=== PATIENT | female | born 1935 | race Caucasian/White ===

== ENCOUNTER → 2021-06-05 | Outpatient (CLI) | payer OTHER ==
[~2021-06-05] MED LIST: AMLO5 PO; ASPI325 PO; ASPI81EC PO; CITA20 PO; CYAN1000 PO; CYAN1000I IM; ELIQUIS5 MG PO; EZET10 PO; FLUO10 PO; GABA300 PO; HEARTBURN RELI150 M1 PO; LEVSOD100 PO; LEVSOD88 PO; LIVALO2 MG PO; LOSA25 PO; LOSA50 PO; LOSARTAN POTAS100 MG PO; LOSHYD PO; METO50 PO; METO50ER PO; ONDA4ODT MM; PRAV20 PO; VITAMIN B12 SL
== END | disposition home or self-care (01) ==
LOC: LAB SHORT 17:00
DX: N30.00 Acute cystitis without hematuria (principal)
CPT/HCPCS: 87086

== ENCOUNTER 2022-02-05 08:19 | Emergency (ER) | payer OTHER ==
[~2022-02-05] VITALS: Ht 157.5 cm; Wt 63.5 kg
== END 2022-02-05 10:15 | disposition home or self-care (01) ==
LOC: ER 08:19
DX: S06.0X0A Concussion without loss of consciousness, initial encounter (principal); M54.2 Cervicalgia; I10 Essential (primary) hypertension; J45.909 Unspecified asthma, uncomplicated; E03.9 Hypothyroidism, unspecified; Z87.11 Personal history of peptic ulcer disease; Z79.899 Other long term (current) drug therapy; Z88.5 Allergy status to narcotic agent; Z88.0 Allergy status to penicillin; Z88.2 Allergy status to sulfonamides; Z88.8 Allergy status to other drugs, medicaments and biological substances; Z79.01 Long term (current) use of anticoagulants; W17.89XA Other fall from one level to another, initial encounter
CPT/HCPCS: 70450; 72125

== ENCOUNTER → 2025-03-17 | Outpatient (CLI) | payer OTHER ==
[2025-03-17 11:49] LABS: BASOPHILS ABSOLUTE AUTO 0.03 K/mm3 (0.00-0.23); BASOPHILS PERCENT AUTO 1 % (0-2); EOSINOPHILS ABSOLUTE AUTO 0.07 K/mm3 (0.00-0.68); EOSINOPHILS PERCENT AUTO 1 % (0-6); Hematocrit 35.5 % (33.0-51.0); Hemoglobin 11.8 g/dL (11.5-16.0); IMMATURE GRAN ABSOLUTE AUTO 0.03 K/mm3 (0.00-0.10); IMMATURE GRAN PERCENT AUTO 1 % (0-1); LYMPHOCYTES ABSOLUTE AUTO 1.92 K/mm3 (0.84-5.20); LYMPHOCYTES PERCENT AUTO 30 % (21-46); MONOCYTES ABSOLUTE AUTO 0.47 K/mm3 (0.16-1.47); MONOCYTES PERCENT AUTO 7 % (4-13); Mean Corpuscular HGB Conc 33.2 g/dL (31.5-36.5); Mean Corpuscular Volume 92 fL (80-100); NEUTROPHILS ABSOLUTE AUTO 3.96 K/mm3 (1.96-9.15); NEUTROPHILS PERCENT AUTO 61 % (41-73); NRBC ABSOLUTE 0.00 K/mm3 (0.00-0.02); NRBC Auto 0.0 /100 WBC (0.0-0.2); Platelet Count 186 K/mm3 (150-400); RDW Coefficient Variation 13.5 % (11.7-14.2); RDW Standard Deviation 45.5 fL (35.1-46.3)
[2025-03-17 12:10] LABS: Alanine Aminotransfer (ALT/SGP 11.0 U/L (12-78); Albumin, Blood 3.7 g/dL (3.4-5.0); Albumin/Globulin Ratio 1.0 (0.8-1.8); Anion Gap 14.0 mmol/L (3-11); Aspartate Aminotrans (AST/SGOT 21.0 U/L (12-37); Bilirubin, Total 0.5 mg/dL (0.1-1.0); Blood Urea Nitrogen 17.0 mg/dL (8-24); CO2, Blood 25.0 mmol/L (21-32); Calcium, Blood 9.1 mg/dL (8.5-10.1); Chloride, Blood 106.0 mmol/L (98-108); Creatinine, Blood 1.1 mg/dL (0.40-1.00); Globulin, Blood 3.8 g/dL (2.2-4.0); Glucose, Blood 94.0 mg/dL (70-99); Potassium, Blood 4.4 mmol/L (3.5-5.5); Sodium, Blood 141.0 mmol/L (136-145); Total Protein, Blood 7.5 g/dL (6.4-8.2); Uric Acid, Blood 8.0 mg/dL (2.6-6.0)
== END ==
LOC: LAB 11:44 → LAB SHORT 11:44
PROVIDERS: Chiropractor
DX: M54.50 Low back pain, unspecified (principal); M79.675 Pain in left toe(s); R30.0 Dysuria
CPT/HCPCS: 80053; 84550; 85025; 87086